=== PATIENT | male | born 1990 | race Caucasian/White ===

== ENCOUNTER 2025-05-24 10:16 | Emergency (ER) | payer OTHER ==
[2025-05-24] MEDS ORDERED: Methocarbamol 500 MG TAB ONE (11:19)
[2025-05-24] MEDS ORDERED: Ketorolac Tromethamine 30 MG (1 mL) VIAL ONE (11:19)
== END 2025-05-24 11:13 | disposition home or self-care (01) ==
LOC: CSHERS 10:16
DX: M54.12 Radiculopathy, cervical region (principal); F17.290 Nicotine dependence, other tobacco product, uncomplicated
CPT/HCPCS: 96372; 99283; J1885